=== PATIENT | female | born 1935 | race Caucasian/White ===

== ENCOUNTER 2019-02-14 13:44 | Inpatient (IN) | payer BC ==
[~2019-02-14] VITALS: Ht 154.9 cm; Wt 79.4 kg
[2019-02-14] MEDS ORDERED: ATORVASTATIN CA10 MG ORAL (13:46)
[2019-02-14] MEDS ORDERED: TENORMIN100 MG ORAL (13:46)
[2019-02-14] MEDS ORDERED: VERAPAMIL ER120 MG PO (13:46)
[2019-02-14 14:03] VITALS: BP 98/48
--- NOTE | 2019-02-14 14:07 | NUR ---
ED Nurse Note: pt brought in to ER from home by ambulance due to syncope episode. per pt, she had syncope in bathroom and her caregiver found her on the floor. pt denied head trauma. pt aao x4 and bedridden at this moment. calm and cooperative. skin clean and intact. several old bruises noted but no open wound noted. pt is in gown and on monitoring analyst.
--- NOTE | 2019-02-14 14:10 | NUR ---
ED Nurse Note: pt reported pacemaker was inserted 6 weeks ago.
--- NOTE | 2019-02-14 15:05 | NUR ---
ED Nurse Note: ERMD at bedside to assess the pt.
--- NOTE | 2019-02-14 15:08 | NUR ---
ED Nurse Note: pt taken down to CT in stable condition
[2019-02-14 15:11] LABS: BASOPHILS % (AUTO) 0.9 % (0.0-2.0); EOSINOPHILS % (AUTO) 2.5 % (0.0-3.0); HEMOGLOBIN 12.8 G/DL (12.0-16.0); MEAN CORPUSCULAR VOLUME 84 FL (80-99); MONOCYTES % (AUTO) 5.9 % (1.0-10.0); NEUTROPHILS % (AUTO) 75.8 % (45.0-75.0); PLATELET COUNT 162 K/UL (150-450); RED BLOOD COUNT 4.51 M/UL (4.20-5.40); RED CELL DISTRIBUTION WIDTH 12.8 % (11.6-14.8); WHITE BLOOD COUNT 11.7 K/UL (4.8-10.8)
[2019-02-14 15:21] LABS: ANION GAP 10 mmol/L (5-15); BLOOD UREA NITROGEN 22 mg/dL (7-18); CALCIUM 9.4 MG/DL (8.5-10.1); CARBON DIOXIDE 24 MMOL/L (21-32); CHLORIDE 105 MMOL/L (98-107); CREATININE 1.2 MG/DL (0.55-1.30); POTASSIUM 4.8 MMOL/L (3.5-5.1); SODIUM 138 MMOL/L (136-145)
[2019-02-14 15:24] LABS: INR 1.1 (0.9-1.1)
[2019-02-14 15:27] LABS: ALANINE AMINOTRANSFERASE 24 U/L (12-78); ALBUMIN 3.1 G/DL (3.4-5.0); ALBUMIN/GLOBULIN RATIO 0.9 (1.0-2.7); ALKALINE PHOSPHATASE 100 U/L (46-116); ASPARTATE AMINO TRANSFERASE 27 U/L (15-37); BILIRUBIN,TOTAL 0.8 MG/DL (0.2-1.0)
--- NOTE | 2019-02-14 15:38 | NUR ---
ED Nurse Note: Pt returned from CT in stable condition
[2019-02-14 16:03] VITALS: BP 108/51
[2019-02-14 16:08] LABS: APPEARANCE,URINE SLIGHTLY CLOUDY; BILIRUBIN, URINE NEGATIVE (NEGATIVE); COLOR,URINE PALE YELLOW; GLUCOSE, URINE (UA) NEGATIVE (NEGATIVE); KETONES,URINE NEGATIVE (NEGATIVE); LEUKOCYTE ESTERASE ,URINE 1+ (NEGATIVE); NITRITE,URINE NEGATIVE (NEGATIVE); PH,URINE 7 (4.5-8.0); PROTEIN,URINE 2+ (NEGATIVE); UROBILINOGEN,URINE NORMAL MG/DL (0.0-1.0)
--- NOTE | 2019-02-14 16:18 | Emergency Room Report ---
History of Present Illness General Chief Complaint: General Complaint Source: Patient, EMS, Caregiver Present Illness HPI Patient reports that just prior to arrival, she was in the bathroom and she states she was feeling a little "cloudy" in her head. She states she was brushing her teeth at the time. She states she called to her caregiver but by the time the caregiver got to the restroom she had lost consciousness and was unresponsive over the sink. The caregiver then got her into a chair and she was still unresponsive. She states shortly thereafter she did recover. The patient states she is not had any recent illness. She states she saw her primary physician yesterday and everything was fine. She denies recent illness. She denies cough or congestion. She denies chest pain or shortness of breath. She has had similar episodes in the past. She gets all of her care at [facility] typically. She states she is feeling much better now at the time of my evaluation. She has no pain. She has no other complaints. Allergies: Coded Allergies: SULFA (SULFONAMIDE ANTIBIOTICS) (Verified Allergy, Unknown, 02/14/19) Patient History Past Medical History: see triage record, HTN Past Surgical History: pacemaker Social History: Denies: smoking, alcohol use, drug use Reviewed Nursing Documentation: PMH: Agreed; PSxH: Agreed Nursing Documentation-PMH Hx Cardiac Problems: Yes - PACEMAKER Hx Hypertension: Yes Review of Systems All Other Systems: negative except mentioned in HPI Physical Exam Vital Signs Date Time Temp Pulse Resp B/P (MAP) Pulse Ox O2 Delivery O2 Flow Rate FiO2 02/14/19 13:40 97.9 62 21 98/48 (65) 98 Room Air Sp02 EP Interpretation: reviewed, normal General Appearance: no apparent distress, alert, GCS 15, non-toxic, obese Head: normocephalic, atraumatic Eyes: bilateral eye normal inspection, bilateral eye PERRL ENT: hearing grossly normal, normal pharynx, no angioedema, normal voice Neck: full range of motion, supple/symm/no masses Respiratory: chest non-tender, lungs clear, normal breath sounds, no respiratory distress, no retraction, no accessory muscle use, speaking full sentences Cardiovascular #1: regular rate, rhythm, no edema Gastrointestinal: normal bowel sounds, non tender, soft, non-distended, no guarding, no rebound Rectal: deferred Musculoskeletal: back normal, normal range of motion, non-tender Neurologic: alert, motor strength/tone normal, oriented x3, sensory intact, responsive, speech normal Psychiatric: judgement/insight normal, memory normal, mood/affect normal, no suicidal/homicidal ideation Skin: no rash, normal color Medical Decision Making Diagnostic Impression: Primary Impression: Syncope Additional Impressions: Hypotension Dehydration ER Course This patient presents with an episode of syncope. She was also hypotensive on arrival. This improved with IV fluids. I suspect the syncope is multifactorial. Likely secondary to dehydration and polypharmacy. Overall, the patient's evaluation was benign here in the emergency department. She had significant improvement with IV fluids. However, given the patient's age and frailty, I felt the patient should be admitted overnight for further monitoring and further evaluation and treatment. Laboratory Tests Test 02/14/19 14:41 02/14/19 14:43 Urine Color Pale yellow Urine Appearance Slightly cloudy Urine pH 7 (4.5-8.0) Urine Specific [place] 1.010 (1.005-1.035) Urine Protein 2+ (NEGATIVE) H Urine Glucose (UA) Negative (NEGATIVE) Urine Ketones Negative (NEGATIVE) Urine Blood Negative (NEGATIVE) Urine Nitrite Negative (NEGATIVE) Urine Bilirubin Negative (NEGATIVE) Urine Urobilinogen Normal MG/DL (0.0-1.0) Urine Leukocyte Esterase 1+ (NEGATIVE) H Urine RBC Pending Urine WBC Pending Urine Squamous Epithelial Cells Pending Urine Bacteria Pending White Blood Count 11.7 K/UL (4.8-10.8) H Red Blood Count 4.51 M/UL (4.20-5.40) Hemoglobin 12.8 G/DL (12.0-16.0) Hematocrit 38.0 % (37.0-47.0) Mean Corpuscular Volume 84 FL (80-99) Mean Corpuscular Hemoglobin 28.4 PG (27.0-31.0) Mean Corpuscular Hemoglobin Concent 33.8 G/DL (32.0-36.0) Red Cell Distribution Width 12.8 % (11.6-14.8) Platelet Count 162 K/UL (150-450) Mean Platelet Volume 5.8 FL (6.5-10.1) L Neutrophils (%) (Auto) 75.8 % (45.0-75.0) H Lymphocytes (%) (Auto) 15.0 % (20.0-45.0) L Monocytes (%) (Auto) 5.9 % (1.0-10.0) Eosinophils (%) (Auto) 2.5 % (0.0-3.0) Basophils (%) (Auto) 0.9 % (0.0-2.0) Prothrombin Time 11.5 SEC (9.30-11.50) Prothrombin Time INR 1.1 (0.9-1.1) PTT 30 SEC (23-33) Sodium Level 138 MMOL/L (136-145) Potassium Level 4.8 MMOL/L (3.5-5.1) Chloride Level 105 MMOL/L (98-107) Carbon Dioxide Level 24 MMOL/L (21-32) Anion Gap 10 mmol/L (5-15) Blood Urea Nitrogen 22 mg/dL (7-18) H Creatinine 1.2 MG/DL (0.55-1.30) Estimate Glomerular Filtration Rate mL/min (>60) Glucose Level 100 MG/DL (74-106) Calcium Level 9.4 MG/DL (8.5-10.1) Total Bilirubin 0.8 MG/DL (0.2-1.0) Aspartate Amino Transferase (AST) 27 U/L (15-37) Alanine Aminotransferase (ALT) 24 U/L (12-78) Alkaline Phosphatase 100 U/L (46-116) Troponin I 0.000 ng/mL (0.000-0.056) Total Protein 6.5 G/DL (6.4-8.2) Albumin 3.1 G/DL (3.4-5.0) L Globulin 3.4 g/dL Albumin/Globulin Ratio 0.9 (1.0-2.7) L EKG Diagnostic Results Rate: normal Rhythm: other - Paced ST Segments: no acute changes Rhythm Strip Diag. Results EP Interpretation: yes Rate: 60 Rhythm: other - Paced Chest X-Ray Diagnostic Results Chest X-Ray Diagnostic Results : Chest X-Ray Ordered: Yes # of Views/Limited/Complete: 1 View Indication: Other EP Interpretation: Yes Interpretation: no consolidation, no effusion, no pneumothorax, no acute cardiopulmonary disease Impression: No acute disease Electronically Signed by: Nell Shepard DO CT/MRI/US Diagnostic Results CT/MRI/US Diagnostic Results : Imaging Test Ordered: CT head Impression Impression: Previously demonstrated venous distribution gas bubbles have resolved, most likely represented transient intravenous air from intravenous injection Other stable chronic and age-related findings as described. Negative for acute intracranial bleed or mass effect. CT head: IMPRESSION: No evidence of acute intracranial hemorrhage, mass effect or cortical edema. Atrophy and nonspecific periventricular hypoattenuation suggestive of chronic ischemic microvascular changes. No depressed calvarial fracture. Significant amount of air within venous structures suggesting embolism, possibly during intravenous catheterization. Additional punctate foci of gas noted skull base likely but not definitively within the venous system. Recommend recommend interval follow-up exam to assess for resolution of this finding. 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 Recommend further evaluation with MRI (specialized temporomandibular joint protocols with open and closed mouth images) Last Vital Signs Date Time Temp Pulse Resp B/P (MAP) Pulse Ox O2 Delivery O2 Flow Rate FiO2 02/14/19 14:03 97.9 65 18 98/48 98 Room Air Disposition: ADMITTED INPATIENT Condition: Serious Nell Shepard DO Feb 14, 2019 16:18
--- NOTE | 2019-02-14 16:27 | NUR ---
ED Nurse Note: DEMETRIO informing pt's son that pt will be admitted.
[2019-02-14] MEDS ORDERED: OXYBUTYNIN CHLOR5 GM MC (17:36)
[2019-02-14] MEDS ORDERED: SULFAMETHOXAZO100 GM MC (17:36)
[2019-02-14] MEDS ORDERED: LEVOTHYROXINE75 MCG ORAL (17:36)
[2019-02-14] MEDS ORDERED: CEPHALEXIN500 MG ORAL (17:36)
--- NOTE | 2019-02-14 17:45 | NUR ---
ED Nurse Note: Changed pt bed linens. Pt inventory documented. Per ERMD, pt allowed to eat.
[2019-02-14 18:03] VITALS: BP 127/61
--- NOTE | 2019-02-14 18:06 | History and Physical ---
History of Present Illness General Date patient seen: Feb 14, 2019 Reason for Hospitalization: General Complaint Present Illness HPI 83 year old female with history of recent pacemaker placement brought in by EMS for syncope. Patient reports that just prior to arrival, she was in the bathroom and she states she was feeling a little "cloudy" in her head. She states she was brushing her teeth at the time. She states she called to her caregiver but by the time the caregiver got to the restroom she had lost consciousness and was unresponsive over the sink. The caregiver then got her into a chair and she was still unresponsive. She states shortly thereafter she did recover. Per cook pickled meat, her sbp was 60 at the time. She called EMS. Patient had recently seen her PCP Dr. Richard Leahy the day before admission. Denies any recent illness, chest pain, sob, fever, chills, orthopnea or pnd. There was no witnessed head trauma. PMH, PSH: as above social history; Lives at home with and has a visiting aide Family history: denies any family of heart disease ROS: 12 system review of system negative except as in HPI . Allergies: Coded Allergies: SULFA (SULFONAMIDE ANTIBIOTICS) (Verified Allergy, Unknown, 02/14/19) Medication History Scheduled Atenolol* (Tenormin*), 100 MG ORAL DAILY, (Reported) Atorvastatin Calcium* (Lipitor*), 10 MG ORAL BEDTIME, (Reported) Cephalexin* (Keflex*), 500 MG ORAL EVERY 12 HOURS, (Reported) Levothyroxine Sodium* (Levothyroxine Sodium*), 50 ORAL DAILY, (Reported) Oxybutynin Chloride (Oxybutynin Chloride), 5 GM MC DAILY, (Reported) Miscellaneous Medications Sulfamethoxazole (Sulfamethoxazole), Unknown Dose MC, (Reported) Discontinued Medications Atenolol (Tenormin), 100 MG ORAL DAILY, (Reported) Discontinued Reason: MD discontinued med Verapamil Hcl (Verapamil Er), 120 MG PO, (Reported) Discontinued Reason: MD discontinued med Patient History Healthcare decision maker Resuscitation status Advanced Directive on File Physical Exam Physical Exam Narrative General: No acute distress Neck: Supple no jvd. Respiratory: CTA bl, no rales, wheezing or rhonchi CVS: regular S1 and S2 with no gallop or murmur. pacemaker is in the left subclavian. Abdominal: soft, non tender, non distended Extremities: No pitting edema Neurological: alert and oriented x4, grossly intact Skin: no rash or ulcer Last 24 Hour Vital Signs Date Time Temp Pulse Resp B/P (MAP) Pulse Ox O2 Delivery O2 Flow Rate FiO2 02/14/19 14:03 97.9 65 18 98/48 98 Room Air 02/14/19 14:03 62 21 Room Air 02/14/19 13:40 97.9 62 21 98/48 (65) 98 Room Air Laboratory Tests Test 02/14/19 14:41 02/14/19 14:43 Urine Color Pale yellow Urine Appearance Slightly cloudy Urine pH 7 (4.5-8.0) Urine Specific [place] 1.010 (1.005-1.035) Urine Protein 2+ (NEGATIVE) H Urine Glucose (UA) Negative (NEGATIVE) Urine Ketones Negative (NEGATIVE) Urine Blood Negative (NEGATIVE) Urine Nitrite Negative (NEGATIVE) Urine Bilirubin Negative (NEGATIVE) Urine Urobilinogen Normal MG/DL (0.0-1.0) Urine Leukocyte Esterase 1+ (NEGATIVE) H Urine RBC 0-2 /HPF (0 - 2) Urine WBC 5-10 /HPF (0 - 2) H Urine Squamous Epithelial Cells Many /LPF (NONE/OCC) H Urine Bacteria Moderate /HPF (NONE) H White Blood Count 11.7 K/UL (4.8-10.8) H Red Blood Count 4.51 M/UL (4.20-5.40) Hemoglobin 12.8 G/DL (12.0-16.0) Hematocrit 38.0 % (37.0-47.0) Mean Corpuscular Volume 84 FL (80-99) Mean Corpuscular Hemoglobin 28.4 PG (27.0-31.0) Mean Corpuscular Hemoglobin Concent 33.8 G/DL (32.0-36.0) Red Cell Distribution Width 12.8 % (11.6-14.8) Platelet Count 162 K/UL (150-450) Mean Platelet Volume 5.8 FL (6.5-10.1) L Neutrophils (%) (Auto) 75.8 % (45.0-75.0) H Lymphocytes (%) (Auto) 15.0 % (20.0-45.0) L Monocytes (%) (Auto) 5.9 % (1.0-10.0) Eosinophils (%) (Auto) 2.5 % (0.0-3.0) Basophils (%) (Auto) 0.9 % (0.0-2.0) Prothrombin Time 11.5 SEC (9.30-11.50) Prothromb Time International Ratio 1.1 (0.9-1.1) Activated Partial Thromboplast Time 30 SEC (23-33) Sodium Level 138 MMOL/L (136-145) Potassium Level 4.8 MMOL/L (3.5-5.1) Chloride Level 105 MMOL/L (98-107) Carbon Dioxide Level 24 MMOL/L (21-32) Anion Gap 10 mmol/L (5-15) Blood Urea Nitrogen 22 mg/dL (7-18) H Creatinine 1.2 MG/DL (0.55-1.30) Estimat Glomerular Filtration Rate mL/min (>60) Glucose Level 100 MG/DL (74-106) Calcium Level 9.4 MG/DL (8.5-10.1) Total Bilirubin 0.8 MG/DL (0.2-1.0) Aspartate Amino Transf (AST/SGOT) 27 U/L (15-37) Alanine Aminotransferase (ALT/SGPT) 24 U/L (12-78) Alkaline Phosphatase 100 U/L (46-116) Troponin I 0.000 ng/mL (0.000-0.056) Total Protein 6.5 G/DL (6.4-8.2) Albumin 3.1 G/DL (3.4-5.0) L Globulin 3.4 g/dL Albumin/Globulin Ratio 0.9 (1.0-2.7) L Height (Feet): 5 Height (Inches): 1.00 Weight (Pounds): 175 Assessment/Plan Status: stable, progressing Assessment/Plan: #Syncope, dehydrated and hypotensive #recent pace maker placement few months ago. r/o pacemaker malfunction #doubt ACS, no chest pain however r/o. EKG AV paced #HTN #HLD #Hypothyroidism Plan: -Admit to telemetry -Serial troponin -Echocardiogram Check TSH pace maker integration EP consult Dr. Maradiaga IVF Review and adjust meds. Hold BP meds Continue statin d/w pcp Dr. Richard Leahy and patient, and Deedee her aide at bedside I spent 70 minute son this encounter, >50% spent on counselling and care coordination. I spent an additional 35 minutes in chart review and review of prior hospitalization, labs and imagining. Garret Smart M.D. Feb 14, 2019 18:06
[2019-02-14] MEDS ORDERED: Milk of Magnesia 30ml Ud ORAL PRN (18:30)
[2019-02-14] MEDS ORDERED: Albuterol/Ipratropium 3ml neb HHN PRN (18:30)
--- NOTE | 2019-02-14 18:55 | NUR ---
HAND-OFF: Report given to ROXANA Sauer. waiting for the room to be assigned. no orders to carry at this moment.
--- NOTE | 2019-02-14 18:56 | NUR ---
ED Nurse Note: Received report from ROXANA Becker. Pt is in bed resting, alert, verbally responsive, VSS.
--- NOTE | 2019-02-14 19:21 | NUR ---
ED Nurse Note: report given to ROXANA Mcmanus. Per ERMD, pt will be transferred after repeated CT.
--- NOTE | 2019-02-14 19:37 | NUR ---
ED Nurse Note: Taken to CT accompanied by 2 techs via gurmario in stable condition.
[2019-02-14 20:00] VITALS: BP 129/59
--- NOTE | 2019-02-14 20:00 | NUR ---
NURSE NOTES: Patient has bilateral hearing aid
--- NOTE | 2019-02-14 20:00 | NUR ---
ED Nurse Note: PT was brought up to room 202-2 accompanied by firestopper technician and RN in stable condition via gurney with monitor box. IV site to right hand remains intact. PT is alert , verbally responsive. R
--- NOTE | 2019-02-14 20:00 | NUR ---
NURSE NOTES: Received patient from ROXANA Rinaldi, patient in bed, stable, AOx3, denies pain at this time, no distress, IV site on right wrist asymptomatic, intact, patent, admission orders in, belonging list checked, bed low&locked, side rails upx3, call light within reach will continue to monitor and reassess
--- NOTE | 2019-02-14 20:35 | Diagnostic Imaging Report ---
Indications: Abnormal venous gas demonstrated on prior CT scan, follow-up recommended to assure resolution Technique: Spiral acquisitions obtained through the brain. Angled axial and coronal 5 x 5 mm slices were reconstructed. Total dose length product 1214 mGycm. CTDI vol(s) 60 mGy. Dose reduction achieved using automated exposure control Comparison: 2 1/2 hours earlier Findings: Single gas bubble projects at the level of the left posterior clinoid process, could just represent an extension of the sphenoid sinus. Other previously demonstrated gas bubbles which were in a venous vascular distribution have resolved. Again demonstrated is evidence of prior cataract surgery on the left. Again demonstrated is right-sided ethmoid sinus disease. The mastoids are clear. The calvarium is intact. Again demonstrated is age-related enlargement of the ventricles and extra axial CSF spaces. Again demonstrated is periventricular deep white matter low-attenuation consistent with chronic microvascular ischemic change. No acute intracranial hemorrhage or edema, mass effect, nor midline shift. Impression: Previously demonstrated venous distribution gas bubbles have resolved, most likely represented transient intravenous air from intravenous injection Other stable chronic and age-related findings as described. Negative for acute intracranial bleed or mass effect. This agrees with the preliminary interpretation provided overnight by [facility] teleradiology service. The CT scanner at [facility] is accredited by the [employer] and the scans are performed using protocols designed to limit radiation exposure to as low as reasonably achievable to attain images of sufficient resolution adequate for diagnostic evaluation.
[2019-02-14] MEDS: Heparin 5000 units/ml inj SUBQ SCH (21:16)
[2019-02-15] VITALS: BP 131/55
[2019-02-15 04:00] VITALS: BP 135/59
--- NOTE | 2019-02-15 07:47 | NUR ---
HAND-OFF: Report given to Tania Lopez, patient in stable condition, plan of care endorsed.
--- NOTE | 2019-02-15 08:00 | NUR ---
NURSE NOTES: pt. awake and talking, having breakfast in bed. Pt wearing hearing aids. Pt on threat monitoring analyst, no signs of cardiac or respiratory distress at this time. Iv site dry and intact. Call light is within reach. Bed is locked and in lowest position. will continue to monitor pt and lab values.
[2019-02-15 08:10] VITALS: BP 142/62
[2019-02-15 08:45] LABS: BASOPHILS % (AUTO) 0.8 % (0.0-2.0); EOSINOPHILS % (AUTO) 4.1 % (0.0-3.0); HEMATOCRIT 37.6 % (37.0-47.0); LYMPHOCYTES % (AUTO) 26.1 % (20.0-45.0); MEAN CORPUSCULAR VOLUME 88 FL (80-99); NEUTROPHILS % (AUTO) 63.9 % (45.0-75.0); PLATELET COUNT 150 K/UL (150-450); RED BLOOD COUNT 4.28 M/UL (4.20-5.40); RED CELL DISTRIBUTION WIDTH 14.5 % (11.6-14.8); WHITE BLOOD COUNT 7.5 K/UL (4.8-10.8)
--- NOTE | 2019-02-15 08:53 | Diagnostic Imaging Report ---
Indication: Syncope Technique: XRAY Chest 1v Comparison: None Findings: Heart is mildly enlarged. There is central pulmonary vascular congestion. There is an indwelling left-sided dual-lead pacer/AICD. No focal airspace consolidation, pleural effusion or pneumothorax. There are degenerative changes in the spine and shoulders. No acute osseous abnormality. Impression: * Borderline cardiomegaly and indwelling pacemaker. * Mild central pulmonary vascular congestion without alveolar edema.
[2019-02-15 09:10] LABS: ANION GAP 7 mmol/L (5-15); BLOOD UREA NITROGEN 21 mg/dL (7-18); CALCIUM 8.6 MG/DL (8.5-10.1); CARBON DIOXIDE 26 MMOL/L (21-32); CHLORIDE 110 MMOL/L (98-107); CREATININE 1.2 MG/DL (0.55-1.30); POTASSIUM 3.8 MMOL/L (3.5-5.1); SODIUM 143 MMOL/L (136-145)
--- NOTE | 2019-02-15 09:20 | NUR ---
CASE MANAGEMENT:REVIEW 83 YR OLD FEMALE BIBA FROM HOME CC: SYNCOPAL EPISODE PMH: PACEMAKER SI: SYNCOPE. HYPOTENSION. DEHYDRATION 97.8 62 21 98/48 98% ON RA WBC+11.7 BUN+22 IS: 1L NS BOLUS CT HEAD : TO TELEMETRY DCP: FROM HOME INTERQUAL CRITERIA MET
[2019-02-15] MEDS: Heparin 5000 units/ml inj SUBQ SCH (09:30)
--- NOTE | 2019-02-15 09:40 | Diagnostic Imaging Report ---
Indication: Syncope Technique: Continuous helical CT scanning of the head was performed utilizing automated exposure control without intravenous contrast material. Axial and coronal reconstructions were obtained. Comparison: None CT dose: Total DLP 1233.2 mGycm; CTDI vol 62.7 mGy Findings: There is no acute intracranial hemorrhage, mass effect or cortical edema. There is no shift of the midline structures. The ventricles, cisterns and sulci are prominent consistent with atrophy. Periventricular hypoattenuation is seen, a nonspecific finding. Atherosclerotic vascular calcifications are noted. A large amount of air is noted with a serpiginous appearance suggesting location within the venous structures. Indeed there is air within the cavernous sinuses and right superior ophthalmic vein as well as facial veins. Additional foci of air at the skull base also likely within the venous system. Mastoid air cells are clear. No acute skull fracture is identified. There is mucosal thickening affecting multiple ethmoid air cells. There is disease of the left temporomandibular joint with flattening of the left mandibular head and erosive changes in the mandibular fossa and expansion of the joint space. IMPRESSION: No evidence of acute intracranial hemorrhage, mass effect or cortical edema. Atrophy and nonspecific periventricular hypoattenuation suggestive of chronic ischemic microvascular changes. No depressed calvarial fracture. Significant amount of air within venous structures suggesting embolism, possibly during intravenous catheterization. Additional punctate foci of gas noted skull base likely but not definitively within the venous system. Recommend recommend interval follow-up exam to assess for resolution of this finding. 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 Recommend further evaluation with MRI (specialized temporomandibular joint protocols with open and closed mouth images) The CT scanner at [facility] is accredited by the [employer] and the scans are performed using protocols designed to limit radiation exposure to as low as reasonably achievable to attain images of sufficient resolution adequate for diagnostic evaluation.
--- NOTE | 2019-02-15 10:05 | NUR ---
PT NOTE Received MD order for PT evaluation, also MD order for bedrest. Spoke with Dr. Smart, wants patient to be seen first by cardiology. Will wait for clearance from cardiology prior to initiating PT evaluation. Discussed with Jessica SCHMIDT, will follow.
[2019-02-15 12:00] VITALS: BP 131/78
--- NOTE | 2019-02-15 13:33 | NUR ---
*-* INSURANCE *-* ALL CLINICALS AND REVIEWS HAVE BEEN FAXED TO: [employer] AUTH#[id number] NO PRODUCT MARKETING DIRECTOR AT THIS TIME FAX ALL CLINICALS TO [phone]
--- NOTE | 2019-02-15 14:12 | Cardiac Electrophysiology PN ---
Subjective Subjective [id number] Objective Last 24 Hour Vital Signs Date Time Temp Pulse Resp B/P (MAP) Pulse Ox O2 Delivery O2 Flow Rate FiO2 02/15/19 09:00 Room Air 02/15/19 08:10 98.6 76 18 142/62 (88) 96 02/15/19 08:00 75 02/15/19 04:00 65 02/15/19 04:00 97.8 74 16 135/59 (84) 94 02/15/19 00:00 64 02/15/19 00:00 97.7 72 19 131/55 (80) 95 02/14/19 22:55 70 02/14/19 21:03 Room Air 02/14/19 20:34 72 02/14/19 20:00 96.6 76 18 129/59 (82) 95 02/14/19 20:00 98.0 68 18 110/62 97 Room Air 02/14/19 18:03 98.2 70 18 127/61 98 Room Air 02/14/19 16:03 98.0 68 18 108/51 98 Room Air Intake and Output 02/14/19 02/15/19 19:00 07:00 Intake Total 1300 ml Balance 1300 ml Intake Oral 0 ml IV Total 1300 ml # Voids 2 Laboratory Tests Test 02/14/19 14:41 02/14/19 14:43 02/15/19 08:30 Urine Color Pale yellow Urine Appearance Slightly cloudy Urine pH 7 (4.5-8.0) Urine Specific [place] 1.010 (1.005-1.035) Urine Protein 2+ (NEGATIVE) H Urine Glucose (UA) Negative (NEGATIVE) Urine Ketones Negative (NEGATIVE) Urine Blood Negative (NEGATIVE) Urine Nitrite Negative (NEGATIVE) Urine Bilirubin Negative (NEGATIVE) Urine Urobilinogen Normal MG/DL (0.0-1.0) Urine Leukocyte Esterase 1+ (NEGATIVE) H Urine RBC 0-2 /HPF (0 - 2) Urine WBC 5-10 /HPF (0 - 2) H Urine Squamous Epithelial Cells Many /LPF (NONE/OCC) H Urine Bacteria Moderate /HPF (NONE) H White Blood Count 11.7 K/UL (4.8-10.8) H 7.5 K/UL (4.8-10.8) Red Blood Count 4.51 M/UL (4.20-5.40) 4.28 M/UL (4.20-5.40) Hemoglobin 12.8 G/DL (12.0-16.0) 12.0 G/DL (12.0-16.0) Hematocrit 38.0 % (37.0-47.0) 37.6 % (37.0-47.0) Mean Corpuscular Volume 84 FL (80-99) 88 FL (80-99) Mean Corpuscular Hemoglobin 28.4 PG (27.0-31.0) 28.0 PG (27.0-31.0) Mean Corpuscular Hemoglobin Concent 33.8 G/DL (32.0-36.0) 31.8 G/DL (32.0-36.0) L Red Cell Distribution Width 12.8 % (11.6-14.8) 14.5 % (11.6-14.8) Platelet Count 162 K/UL (150-450) 150 K/UL (150-450) Mean Platelet Volume 5.8 FL (6.5-10.1) L 6.0 FL (6.5-10.1) L Neutrophils (%) (Auto) 75.8 % (45.0-75.0) H 63.9 % (45.0-75.0) Lymphocytes (%) (Auto) 15.0 % (20.0-45.0) L 26.1 % (20.0-45.0) Monocytes (%) (Auto) 5.9 % (1.0-10.0) 5.0 % (1.0-10.0) Eosinophils (%) (Auto) 2.5 % (0.0-3.0) 4.1 % (0.0-3.0) H Basophils (%) (Auto) 0.9 % (0.0-2.0) 0.8 % (0.0-2.0) Prothrombin Time 11.5 SEC (9.30-11.50) Prothromb Time International Ratio 1.1 (0.9-1.1) Activated Partial Thromboplast Time 30 SEC (23-33) Sodium Level 138 MMOL/L (136-145) 143 MMOL/L (136-145) Potassium Level 4.8 MMOL/L (3.5-5.1) 3.8 MMOL/L (3.5-5.1) Chloride Level 105 MMOL/L (98-107) 110 MMOL/L (98-107) H Carbon Dioxide Level 24 MMOL/L (21-32) 26 MMOL/L (21-32) Anion Gap 10 mmol/L (5-15) 7 mmol/L (5-15) Blood Urea Nitrogen 22 mg/dL (7-18) H 21 mg/dL (7-18) H Creatinine 1.2 MG/DL (0.55-1.30) 1.2 MG/DL (0.55-1.30) Estimat Glomerular Filtration Rate mL/min (>60) mL/min (>60) Glucose Level 100 MG/DL (74-106) 125 MG/DL (74-106) H Calcium Level 9.4 MG/DL (8.5-10.1) 8.6 MG/DL (8.5-10.1) Total Bilirubin 0.8 MG/DL (0.2-1.0) Aspartate Amino Transf (AST/SGOT) 27 U/L (15-37) Alanine Aminotransferase (ALT/SGPT) 24 U/L (12-78) Alkaline Phosphatase 100 U/L (46-116) Troponin I 0.000 ng/mL (0.000-0.056) Total Protein 6.5 G/DL (6.4-8.2) Albumin 3.1 G/DL (3.4-5.0) L Globulin 3.4 g/dL Albumin/Globulin Ratio 0.9 (1.0-2.7) L Thyroid Stimulating Hormone (TSH) 0.311 uiU/mL (0.358-3.740) Microbiology Date/Time Source Procedure Growth Status 02/14/19 14:41 Urine,Clean Catch Urine Culture - Preliminary Resulted Paco Pablo MD Feb 15, 2019 14:12
--- NOTE | 2019-02-15 15:26 | Cardiology Report ---
APPROVED REPORT EXAM: Two-dimensional and M-mode echocardiogram with Doppler and color Doppler. INDICATION Syncope M-Mode DIMENSIONS IVSd1.1 (0.7-1.1cm)Left Atrium (MM)3.3 (1.6-4.0cm) LVDd4.3 (3.5-5.6cm)Aortic Root3.2 (2.0-3.7cm) PWd0.8 (0.7-1.1cm)Aortic Cusp Exc.2.0 (1.5-2.0cm) LVDs2.5 (2.5-4.0cm) PWs1.1 cm Normal left ventricular chamber size, systolic function and wall motion. Left ventricular ejection fraction estimated to be 55 %. No evidence of left ventricular hypertrophy. No evidence of pericardial effusion. Left atrial size at upper limits of normal. Right cardiac chamber sizes are within normal limits. Focal aortic valve sclerosis with adequate cusp excursion. Thickened mitral valve leaflets with normal excursion. Mitral annulus and aortic root calcification. Pulmonic valve not well visualized. Normal tricuspid valve structure. IVC is normal in size without physiological collapse. Pacemaker wire is present in right chambers. A color flow and spectral Doppler study was performed and revealed: No aortic regurgitation. Mild mitral regurgitation. reduced left ventricular relaxation c/w impaired relaxation diastolic dysfunction. Mild to moderate tricuspid regurgitation. Tricuspid systolic velocities suggests peak right ventricular systolic pressure of 48 mmHg, consistent with moderate pulmonary hypertension. No pulmonic regurgitation present.
[2019-02-15 16:00] VITALS: BP 141/72
[2019-02-15] MEDS ORDERED: ATENOLOL100 MG ORAL (16:48)
--- NOTE | 2019-02-15 16:58 | Discharge Summary ---
Discharge Summary Hospital Course Date of Admission Feb 14, 2019 at 19:17 Date of Discharge Feb 15, 2019 Admitting Diagnosis syncope, hypotension HPI Lenora Faustin is a 83 year old female who was admitted on Feb 14, 2019 at 19:17 for Syncope,Hypotension Consultations EP Cardiology: Dr. Pablo Procedures Echocardiogram Hospital Course 83 year old female with HTN, HLD, s/p pace maker and hypothyroidism admitted for syncope #Syncope, dehydrated and hypotensive #recent pace maker placement few months ago. r/o pacemaker malfunction #doubt ACS, no chest pain however r/o. EKG AV paced #HTN #HLD #Hypothyroidism Plan: -Admitted to telemetry -Serial troponin, MA ruled out -Echocardiogram without any regional wall motion abnormality Check TSH and it was low, 0.3, patient advised to change dose of Synthroid to 50 mcg (from 75 mcg) and have repeat TSH done with PCP pace maker integration done and no issues found EP consult Dr. Maradiaga IVF Review and adjust meds. Patient advised to stop Verapamil, to void hypotensive episodes, can continue Atenolol 100mg Continue statin d/w pcp Dr. Richard Leahy regarding plans. d/w patient and cardiolgist Dr. Pablo who spoke at length with patient's own contract loader at [facility]. On the day of discharge patient is alert and oriented. lungs cta bl, heart: S1S2 , no m/r.g, no edema, neuro: Grossly intact I spent 35 minute son this encounter. > 50% spent on care coordination and counselling. Discharge Medications Continued Medications: Atenolol* (Tenormin*) 100 Mg Tablet 100 MG ORAL DAILY, TAB (This prescription has been renewed) Atorvastatin Calcium* (Lipitor*) 10 Mg Tablet 10 MG ORAL BEDTIME, TAB (This prescription has been renewed) Cephalexin* (Keflex*) 500 Mg Capsule 500 MG ORAL EVERY 12 HOURS, #14 CAP 0 Refills (This prescription has been renewed) Levothyroxine Sodium* (Levothyroxine Sodium*) 75 Mcg Tablet 50 ORAL DAILY, TAB Take in the morning on an empty stomach, at least 30 minutes before food. Oxybutynin Chloride (Oxybutynin Chloride) 5 Gm Powder 5 GM MC DAILY, GM (This prescription has been renewed) Sulfamethoxazole (Sulfamethoxazole) 100 Gm Powder Unknown Dose MC, GM (This prescription has been renewed) Discontinued Medications: Verapamil Hcl (Verapamil Er) 120 Mg Cap24h.pel 120 MG PO, CAP Discharge Condition Upon Discharge: stable Discharge Disposition Patient was discharged to home Discharge Diagnoses: (1) HLD (hyperlipidemia) (2) Hypotension (3) Syncope and collapse (4) Diastolic dysfunction Garret Smart M.D. Feb 15, 2019 16:58
--- NOTE | 2019-02-15 17:33 | NUR ---
NURSE NOTES: Pt and Pt's family want to go home RIKKI. pt discharge instructions given to health care technician and son, as well as Mrs. Faustin. Son's verbalized understanding of change in medication as well as other DC instructions. Pt was advised to keep hydrated and take medication according to doctor's instruction. Pt already has a doctor's follow up appt. Monday morning. tire finisher was taken off. IV was discontinued pt is not bleeding. Pt left home in stable condition via private vehicle with caregiver.
--- NOTE | 2019-02-15 21:30 | Consultation ---
DATE OF CONSULTATION: 02/15/2019 CARDIOLOGY CONSULTATION CONSULTING PHYSICIAN: Paco Pablo M.D. REFERRING PHYSICIAN: Edmundo Arvizu M.D. REASON FOR CONSULTATION: Evaluation of the patient's pacemaker and syncope. HISTORY OF PRESENT ILLNESS: The patient is an 83-year-old lady with a history of sick sinus syndrome who underwent a Biotronik pacemaker implantation by Dr. Hernandez on 10/29/2018. The patient was in the bathroom and she felt a little bit cloudy in the head. The patient was brushing her teeth at that time. She called her caregiver. By the time the caregiver got to the restroom, she had lost conscious and was unresponsive over the sink. The caregiver got her into the chair where she was still unresponsive. She had seen her primary care physician the day before and everything was okay. The patient had similar episodes in the past. She usually gets her care at [facility] and her primary care doctor is Dr. Richard Leahy. Per my evaluation, the patient denies any chest pain, palpitation, or shortness of breath and wants to go home. REVIEW OF SYSTEMS: Review of systems was negative other than what is mentioned in the history of present illness. PAST MEDICAL HISTORY: As mentioned above. MEDICATIONS: Atenolol, Lipitor, and Synthroid. ALLERGIES: She is allergic to sulfa. PHYSICAL EXAMINATION: VITAL SIGNS: Show blood pressure of 142/62, pulse 76, respiratory rate 18, and temperature 98.6. HEAD AND NECK: Showed no JVD. LUNGS: Clear. CARDIOVASCULAR: Shows regular S1 and S2 with no gallop or murmur. The pacemaker is in the left subclavian. ABDOMEN: Soft. EXTREMITIES: No pitting edema. LABORATORY DATA: Her labs show sodium 142, potassium of 3.8, BUN of 21, creatinine 1.2, and glucose of 125. Troponin is negative. White count is 7.5, hemoglobin 12, hematocrit 37.6, and platelet count of 150,000. Urinalysis showed 5 to 10 wbc's with many epithelial cells. ASSESSMENT AND PLAN: 1. Syncopal episode. The first troponin is negative. EKG is AV paced. We will completely rule out IA protocol and get an echocardiogram to evaluate for ejection fraction and wall motion abnormality. It is likely that she was dehydrated. Continue IV fluids. 2. Myocardial infarction. If the pacemaker interrogation showed normal function, then we will consider discharge. 3. Status post Biotronik pacemaker. The interrogation is pending at this time. 4. Hyperlipidemia. On Lipitor. 5. Hypothyroidism. On Synthroid. 6. History of hypertension. The patient was on atenolol. Systolic blood pressure is in the 140s, heart rate in the 70s, we will resume at the time of discharge. The case was discussed in detail with the patient's son at the bedside as well as Dr. Hernandez, the patient's supervisor travel information center, who implanted the pacemaker for her. Thank you very much, Dr. Arvizu, for allowing me to participate in the care of this patient. Please do not hesitate to contact me for any questions regarding my evaluation. Paco Pablo M.D. DR: [id number] JOB#: [id number] CC:
== END 2019-02-15 17:30 | disposition home or self-care (01) | DRG 641 ==
LOC: EDBD 13:44 → EDBEDREQ 15:39 → EMR 16:29 → EDBEDREQ 18:57 → 2E 19:17
DX: E86.0 Dehydration (principal); R55 Syncope and collapse; I95.9 Hypotension, unspecified; Z88.2 Allergy status to sulfonamides; Z95.0 Presence of cardiac pacemaker; E78.5 Hyperlipidemia, unspecified; E03.9 Hypothyroidism, unspecified; I10 Essential (primary) hypertension
CPT/HCPCS: 36415; 70450; 71045; 80048; 80053; 81003; 84443; 84484; 85025; 85610; 85730; 87086; 93005; 93306; 96360; 99285